=== PATIENT | male | born 1990 | race African-American/Black ===

== ENCOUNTER 2021-01-12 15:46 | Emergency (ER) | payer OTHER ==
[~2021-01-12] VITALS: Ht 175.3 cm; Wt 104.3 kg
[~2021-01-12 15:46] MED LIST: ALBU90OI INH; AMOX500 PO; AZIT250 PO; Amoxicillin500 MG PO; CEPH500 PO; DIAZ10 PO; HYDACE5 PO; HYDR1TAB94 PO; IBUP600 PO; Naprosyn500 MG PO; ONDA4ODT MM; RXHYDACE PO; TOBR.3OPSO OP; VICODIN ES 7.51 EACH PO
[2021-01-12] MEDS ORDERED: CEPH500 PO (19:53)
== END 2021-01-12 20:05 | disposition home or self-care (01) ==
LOC: ER 15:46
DX: S62.634B Displaced fracture of distal phalanx of right ring finger, initial encounter for open fracture (principal); Z87.891 Personal history of nicotine dependence; W23.0XXA Caught, crushed, jammed, or pinched between moving objects, initial encounter; Y92.89 Other specified places as the place of occurrence of the external cause; Y99.0 Civilian activity done for income or pay
CPT/HCPCS: 12002; 73140; 99283-25; A9270